=== PATIENT | female | born 1955 | race Caucasian/White ===

== ENCOUNTER 2025-03-25 10:38 | Emergency (ER) | payer OTHER, MEDICAID ==
[~2025-03-25] VITALS: Ht 165.1 cm; Wt 81.0 kg
[~2025-03-25 10:38] MED LIST: AMLO10TA80 PO; CARB200C7 PO; LACO100T4 PO; LIP40 PO; PANT40TA51 PO; SULF1TAB48 PO; TEMA15CA PO
[2025-03-25 11:05] VITALS: O2SAT 96
[2025-03-25 12:40] VITALS: BP 128/64; PULSE 74; RESP 18; TEMP 36.7; O2SAT 98
== END 2025-03-25 12:41 | disposition home or self-care (01) ==
LOC: ER 10:38
DX: Z48.89 Encounter for other specified surgical aftercare (principal); M19.90 Unspecified osteoarthritis, unspecified site; I10 Essential (primary) hypertension; F03.90 Unspecified dementia, unspecified severity, without behavioral disturbance, psychotic disturbance, mood disturbance, and anxiety; E11.9 Type 2 diabetes mellitus without complications; Z79.899 Other long term (current) drug therapy; Z95.0 Presence of cardiac pacemaker
CPT/HCPCS: 93005; 99283